=== PATIENT | female | born 1995 | race Caucasian/White ===

== ENCOUNTER 2016-07-16 07:35 | Emergency (ER) | payer MEDICAID ==
[~2016-07-16] VITALS: Ht 167.6 cm; Wt 59.0 kg
[2016-07-16 07:35] VITALS: BP 101/53
[~2016-07-16 07:35] MED LIST: ACYCLOVIR400 MG PO; CIPROFLOXACIN500 M2 ORAL; IBUPROFEN600 MG ORAL; NKM; PHENAZOPYRIDIN100 MG ORAL; PREDNISONE20 MG PO; TYLENOL EXTRA500 MG ORAL
[2016-07-16 07:51] VITALS: BP 92/58
[2016-07-16 08:11] LABS: BASOPHILS % (AUTO) 1.2 % (0.0-2.0); EOSINOPHILS % (AUTO) 2.6 % (0.0-3.0); LYMPHOCYTES % (AUTO) 25.4 % (20.0-45.0); MEAN CORPUSCULAR HEMOGLOBIN 29.7 PG (27.0-31.0); MEAN CORPUSCULAR HGB CONC 33.2 G/DL (32.0-36.0); MEAN CORPUSCULAR VOLUME 90 FL (80-99); MEAN PLATELET VOLUME 6.6 FL (6.5-10.1); NEUTROPHILS % (AUTO) 59.8 % (45.0-75.0); PLATELET COUNT 218 K/UL (150-450); RED BLOOD COUNT 4.32 M/UL (4.20-5.40); RED CELL DISTRIBUTION WIDTH 11.9 % (11.6-14.8); WHITE BLOOD COUNT 3.8 K/UL (4.8-10.8)
[2016-07-16 08:26] LABS: ALANINE AMINOTRANSFERASE 16 U/L (3-33); ALBUMIN/GLOBULIN RATIO 1.6 (1.0-2.7); ANION GAP 15 (5-15); ASPARTATE AMINO TRANSFERASE 15 U/L (5-40); CALCIUM 8.6 mg/dL (8.6-10.2); CARBON DIOXIDE 25 mEQ/L (20-30); CHLORIDE 100 mEQ/L (98-107); CREATININE 0.6 mg/dL (0.5-0.9); GLOMERULAR FILTRATION RATE > 60 mL/min (>60); HEMOLYSIS 3; POTASSIUM 3.8 mEQ/L (3.4-4.9); SODIUM 140 mEQ/L (135-145); TOTAL PROTEIN 6.5 g/dL (6.6-8.7)
[2016-07-16 08:27] LABS: TROPONIN I < 0.30 ng/mL (<=0.30)
[2016-07-16 08:36] LABS: CKMB < 1.5 ng/mL (< 3.8)
[2016-07-16 08:37] LABS: APPEARANCE,URINE SLIGHTLY CLOUDY; KETONES,URINE NEGATIVE (NEGATIVE); LEUKOCYTE ESTERASE ,URINE 1+ (NEGATIVE); NITRITE,URINE NEGATIVE (NEGATIVE); PH,URINE 6.5 (4.5-8.0); PROTEIN,URINE 2+ (NEGATIVE); UROBILINOGEN,URINE NORMAL MG/DL (0.0-1.0)
[2016-07-16 09:21] LABS: RBC,URINE 0-2 /HPF (0 - 2)
[2016-07-16 09:22] LABS: BACTERIA,URINE FEW /HPF; SQUAMOUS EPITHELIAL CELL,UR MODERATE /LPF (NONE/OCC)
--- NOTE | 2016-07-16 09:43 | Emergency Room Report ---
History of Present Illness General Chief Complaint: Syncope Source: Patient Present Illness HPI This patient presents with syncope. The patient states that she had gotten up to go to the restroom and suddenly became lightheaded, she states she saw white and then she was on the floor. She states she was able to crawl to get help and thinks that she may have fainted again. She denies recent illness. She denies cough or congestion. She has had similar episodes in the past. She states at that time she was found to be anemic. She denies neck pain or stiffness. She denies headache. She denies chest pain or abdominal pain. She has no other complaints. Allergies: Coded Allergies: No Known Allergies (Unverified , 02/15/12) Patient History Past Medical History: see triage record, other - anemia Social History: Denies: alcohol use, drug use, smoking Last Menstrual Period: last month Reviewed Nursing Documentation: PMH: Agreed, PSxH: Agreed Nursing Documentation-PMH Past Medical History: No History, Except For Hx Cardiac Problems: Yes - anemia Hx Hypertension: No Hx Pacemaker: No Hx Asthma: No Hx COPD: No Hx Diabetes: No Hx Cancer: No Hx Gastrointestinal Problems: No Hx Dialysis: No Hx Neurological Problems: No Hx Cerebrovascular Accident: No Hx Seizures: No Review of Systems All Other Systems: negative except mentioned in HPI Physical Exam Vital Signs Date Time Temp Pulse Resp B/P Pulse Ox O2 Delivery O2 Flow Rate FiO2 07/16/16 07:15 98.6 60 16 90/50 100 Room Air Sp02 EP Interpretation: reviewed, normal General Appearance: no apparent distress, alert, GCS 15, non-toxic Head: normocephalic, atraumatic Eyes: bilateral eye PERRL, bilateral eye normal inspection ENT: hearing grossly normal, normal pharynx, no angioedema, normal voice Neck: full range of motion, supple/symm/no masses Respiratory: chest non-tender, lungs clear, normal breath sounds, speaking full sentences Cardiovascular #1: regular rate, rhythm, no edema Gastrointestinal: normal bowel sounds, non tender, soft, non-distended, no guarding, no rebound Rectal: deferred Musculoskeletal: back normal, gait/station normal, normal range of motion, non- tender Neurologic: alert, oriented x3, responsive, motor strength/tone normal, sensory intact, speech normal Psychiatric: judgement/insight normal, memory normal, mood/affect normal, no suicidal/homicidal ideation Skin: normal color, no rash, warm/dry, well hydrated Medical Decision Making Diagnostic Impression: Primary Impression: Syncope Additional Impression: UTI (urinary tract infection) ER Course I suspect the syncope that the patient is presenting with is a nonemergent in etiology. Regarding the history, the patient has no history of structural heart disease or coronary artery disease, no family history of sudden , has no shortness of breath, and the syncope is not exertional. On physical exam , the patient is not hypotensive, has no findings of CHF, and no significant cardiac murmur suggestive of valvular heart disease or cardiac outflow obstruction. The patient reports no history of seizure or head trauma. EKG showed no evidence of concerning findings of QT prolongation, Brugada syndrome or significant ST changes suggestive of acute ischemia, dysrhythmias or significant conduction abnormalities. On laboratory evaluation, blood sugar was normal and the patient is not anemic. The patient was counseled that, though unlikely, the possibility of an emergent cause of syncope may be present and that the patient should return immediately if symptoms persist or worsen. The patient does have a blood pressure that runs low. She is a very thin young female in this is likely baseline for her. She is also slightly bradycardic with a heart rate in the 60s which is also likely baseline for her. She was educated to remain hydrated. I do not feel that the blood pressure is pathologic this patient and so I did not pursue this further. The patient urinalysis is contaminated, however, I will give the patient of course of Macrobid. I believe the patient is stable for discharge to followup with her PMD for further workup. Labs Test 07/16/16 07:55 White Blood Count 3.8 K/UL (4.8-10.8) Red Blood Count 4.32 M/UL (4.20-5.40) Hemoglobin 12.9 G/DL (12.0-16.0) Hematocrit 38.7 % (37.0-47.0) Mean Corpuscular Volume 90 FL (80-99) Mean Corpuscular Hemoglobin 29.7 PG (27.0-31.0) Mean Corpuscular Hemoglobin Concent 33.2 G/DL (32.0-36.0) Red Cell Distribution Width 11.9 % (11.6-14.8) Platelet Count 218 K/UL (150-450) Mean Platelet Volume 6.6 FL (6.5-10.1) Neutrophils (%) (Auto) 59.8 % (45.0-75.0) Lymphocytes (%) (Auto) 25.4 % (20.0-45.0) Monocytes (%) (Auto) 11.0 % (1.0-10.0) Eosinophils (%) (Auto) 2.6 % (0.0-3.0) Basophils (%) (Auto) 1.2 % (0.0-2.0) Urine Color Pale yellow Urine Appearance Slightly cloudy Urine pH 6.5 (4.5-8.0) Urine Specific [place] 1.010 (1.005-1.035) Urine Protein 2+ (NEGATIVE) Urine Glucose (UA) Negative (NEGATIVE) Urine Ketones Negative (NEGATIVE) Urine Occult Blood Negative (NEGATIVE) Urine Nitrite Negative (NEGATIVE) Urine Bilirubin Negative (NEGATIVE) Urine Urobilinogen Normal MG/DL (0.0-1.0) Urine Leukocyte Esterase 1+ (NEGATIVE) Urine RBC 0-2 /HPF (0 - 2) Urine WBC 5-10 /HPF (0 - 2) Urine Squamous Epithelial Cells Moderate /LPF (NONE/OCC) Urine Bacteria Few /HPF (NONE) Urine HCG, Qualitative Negative Sodium Level 140 mEQ/L (135-145) Potassium Level 3.8 mEQ/L (3.4-4.9) Chloride Level 100 mEQ/L (98-107) Carbon Dioxide Level 25 mEQ/L (20-30) Anion Gap 15 (5-15) Blood Urea Nitrogen 6 mg/dL (7-23) Creatinine 0.6 mg/dL (0.5-0.9) Estimat Glomerular Filtration Rate > 60 mL/min (>60) Glucose Level 102 mg/dL (74-106) Calcium Level 8.6 mg/dL (8.6-10.2) Total Bilirubin 0.6 mg/dL (0.0-1.2) Aspartate Amino Transf (AST/SGOT) 15 U/L (5-40) Alanine Aminotransferase (ALT/SGPT) 16 U/L (3-33) Alkaline Phosphatase 51 U/L (35-104) Total Creatine Kinase 42 U/L (26-140) Creatine Kinase MB < 1.5 ng/mL (< 3.8) Creatine Kinase MB Relative Index Troponin I < 0.30 ng/mL (<=0.30) Total Protein 6.5 g/dL (6.6-8.7) Albumin 4.0 g/dL (3.5-5.2) Globulin 2.5 g/dL Albumin/Globulin Ratio 1.6 (1.0-2.7) EKG Diagnostic Results Rate: normal Rhythm: NSR ST Segments: no acute changes Rhythm Strip Diag. Results EP Interpretation: yes Rate: 60's Rhythm: NSR, no PVC's, no ectopy Chest X-Ray Diagnostic Results EP Interpretation: Yes Findings: no consolidation, no effusion, no pneumothorax, no acute cardiopulmonary disease Number of Views: 1 Last Vital Signs Date Time Temp Pulse Resp B/P Pulse Ox O2 Delivery O2 Flow Rate FiO2 07/16/16 07:51 62 16 92/58 99 Room Air 07/16/16 07:35 97.3 Disposition: HOME, SELF-CARE Condition: Improved Referrals: [facility],REFERRING (PCP) Patient Instructions: Syncope CALIN VALLEJO D.O. Jul 16, 2016 09:43
[2016-07-16] MEDS ORDERED: NITROFURANTOIN100 M2 ORAL (09:56)
[2016-07-16 10:34] VITALS: BP 85/45
--- NOTE | 2016-07-18 14:05 | Cardiology Report ---
APPROVED REPORT EKG Measurement Heart [id number] Normal sinus rhythm Normal ECG
--- NOTE | 2016-08-08 08:43 | Diagnostic Imaging Report ---
Indication: Chest pain Technique: One view of the chest Comparison: none Findings: Lungs and pleural spaces are clear. Heart size is normal. Impression: No acute process
== END 2016-07-16 10:37 | disposition home or self-care (01) ==
LOC: EDBD 07:35 → EMR 07:54
DX: R55 Syncope and collapse (principal); N39.0 Urinary tract infection, site not specified
CPT/HCPCS: 36415; 71010; 80053; 81003; 81025; 82550; 82553; 84484; 85025; 93005; 96360; 96361

== ENCOUNTER 2019-05-09 10:35 | Emergency (ER) | payer MEDICAID ==
[~2019-05-09] VITALS: Ht 167.6 cm; Wt 72.6 kg
[~2019-05-09 10:35] MED LIST changes: +NITROFURANTOIN100 M2 ORAL
[2019-05-09 10:47] VITALS: BP 115/70
--- NOTE | 2019-05-09 10:47 | NUR ---
ED Nurse Note: PT FROM HOME CAME IN DUE TO VAGINAL SPOTTING WHICH STARTED AROUND THANKSGIVING BUT HAS BEEN IN LARGE AMOUNT WITH CLOTS IN THE LAST 2 DAYS. ALSO C/O LOWER BACK PAIN. DENIES DIZZINESS. LMP WAS 04/2019. AAO X4, AMBULATORY WITH NON LABORED BREATHING. FAMILY MEMBER TA THE BED SIDE.
--- NOTE | 2019-05-09 11:07 | NUR ---
ED Nurse Note: U/S tech contacted.
--- NOTE | 2019-05-09 11:18 | NUR ---
ED Nurse Note: COLLECTE DBLOOD THEN SENT. PT UNABLE TO PROVIDE URINE SAMPLE AT THIS TIME.
--- NOTE | 2019-05-09 11:45 | NUR ---
ED Nurse Note: US STAFF AT THE BED SIDE.
[2019-05-09 11:52] LABS: BASOPHILS % (AUTO) 1.1 % (0.0-2.0); EOSINOPHILS % (AUTO) 2.7 % (0.0-3.0); HEMATOCRIT 38.4 % (37.0-47.0); HEMOGLOBIN 12.8 G/DL (12.0-16.0); LYMPHOCYTES % (AUTO) 24.8 % (20.0-45.0); MEAN CORPUSCULAR VOLUME 87 FL (80-99); NEUTROPHILS % (AUTO) 66.4 % (45.0-75.0); PLATELET COUNT 268 K/UL (150-450); RED BLOOD COUNT 4.41 M/UL (4.20-5.40); RED CELL DISTRIBUTION WIDTH 11.4 % (11.6-14.8); WHITE BLOOD COUNT 7.1 K/UL (4.8-10.8)
[2019-05-09 12:02] LABS: INR 0.9 (0.9-1.1)
[2019-05-09 12:04] LABS: ALANINE AMINOTRANSFERASE 24 U/L (12-78); ALBUMIN 3.9 G/DL (3.4-5.0); ALBUMIN/GLOBULIN RATIO 1.1 (1.0-2.7); ALKALINE PHOSPHATASE 63 U/L (46-116); ANION GAP 9 mmol/L (5-15); ASPARTATE AMINO TRANSFERASE 13 U/L (15-37); BILIRUBIN,TOTAL 0.3 MG/DL (0.2-1.0); BLOOD UREA NITROGEN 8 mg/dL (7-18); CALCIUM 8.6 MG/DL (8.5-10.1); CARBON DIOXIDE 28 MMOL/L (21-32); CHLORIDE 106 MMOL/L (98-107); CREATININE 0.6 MG/DL (0.55-1.30); POTASSIUM 3.8 MMOL/L (3.5-5.1); SODIUM 143 MMOL/L (136-145)
[2019-05-09 13:06] VITALS: BP 127/80
[2019-05-09 13:06] LABS: APPEARANCE,URINE SLIGHTLY CLOUDY; BILIRUBIN, URINE NEGATIVE (NEGATIVE); COLOR,URINE PALE YELLOW; GLUCOSE, URINE (UA) NEGATIVE (NEGATIVE); KETONES,URINE NEGATIVE (NEGATIVE); LEUKOCYTE ESTERASE ,URINE NEGATIVE (NEGATIVE); NITRITE,URINE NEGATIVE (NEGATIVE); PH,URINE 6 (4.5-8.0); PROTEIN,URINE NEGATIVE (NEGATIVE); UROBILINOGEN,URINE NORMAL MG/DL (0.0-1.0)
--- NOTE | 2019-05-09 13:06 | NUR ---
ER DISCHARGE NOTE: Patient is cleared to be discharged per ERMD, pt is aox4, on room air, with stable vital signs. pt was given dc and prescription instructions, pt was able to verbalize understanding, pt id band and iv site removed without complications. pt is able to ambulate with steady gait. pt took all belongings.
--- NOTE | 2019-05-09 13:47 | Diagnostic Imaging Report ---
EXAM: US Pelvis Transabdominal, Complete CLINICAL HISTORY: BLD TECHNIQUE: Real-time complete transabdominal pelvic ultrasound with image documentation. COMPARISON: None FINDINGS: Uterus: Retroverted uterus measures 7.1 x 4.3 x 5.0 cm. Normal appearance. Endometrium measures 8.0 mm. Right ovary: Measures 3.9 x 3.3 x 4.1 cm. Right ovarian cyst measuring 3.6 x 2.9 x 2.8 cm. Normal color Doppler flow to the right ovary. Left ovary: Measures 3.1 x 1.1 by 1.6 cm. Normal appearance with normal color Doppler flow. Other: No free fluid. No adnexal mass. IMPRESSION: 1. Right ovarian cyst measuring up to 3.6 cm. No ovarian torsion. 2. No acute abnormality.
--- NOTE | 2019-05-09 14:17 | Emergency Room Report ---
History of Present Illness General Chief Complaint: Female Urogenital Problems Source: Patient Present Illness HPI 23-year-old female presents ED for evaluation. Complaining of cramping pain for the last 5 days. Also notes bleeding with large clots. Pain is dull, 5 out of 10, nonradiating. Denies dizziness or weakness. Does not believe she is . States that she believes this was her period but has lasted longer than usual and heavier than usual. No other aggravating relieving factors. Denies any other associated symptoms Allergies: Coded Allergies: No Known Allergies (Unverified , 02/15/12) Patient History Past Medical History: none Past Surgical History: none Pertinent Family History: none Social History: Denies: smoking, alcohol use, drug use Last Menstrual Period: 04/04/2019 Now: No Immunizations: UTD Reviewed Nursing Documentation: PMH: Agreed; PSxH: Agreed Nursing Documentation-PMH Past Medical History: No History, Except For Hx Cardiac Problems: Yes - anemia Hx Hypertension: No Hx Pacemaker: No Hx Asthma: No Hx COPD: No Hx Diabetes: No Hx Cancer: No Hx Gastrointestinal Problems: No Hx Dialysis: No Hx Neurological Problems: No Hx Cerebrovascular Accident: No Hx Seizures: No Review of Systems All Other Systems: negative except mentioned in HPI Physical Exam Vital Signs Date Time Temp Pulse Resp B/P (MAP) Pulse Ox O2 Delivery O2 Flow Rate FiO2 05/09/19 10:37 98.2 93 16 104/68 (80) 93 Room Air Sp02 EP Interpretation: reviewed, normal General Appearance: no apparent distress, alert, GCS 15, non-toxic Head: normocephalic, atraumatic Eyes: bilateral eye normal inspection, bilateral eye PERRL ENT: hearing grossly normal, normal pharynx, no angioedema, normal voice Neck: full range of motion, supple/symm/no masses Respiratory: chest non-tender, lungs clear, normal breath sounds, speaking full sentences Cardiovascular #1: regular rate, rhythm, no edema Cardiovascular #2: 2+ carotid (R), 2+ carotid (L), 2+ radial (R), 2+ radial (L) , 2+ dorsalis pedis (R), 2+ dorsalis pedis (L) Gastrointestinal: normal bowel sounds, non tender, soft, non-distended, no guarding, no rebound Rectal: deferred Genitourinary: normal inspection, no CVA tenderness Musculoskeletal: back normal, normal range of motion, gait/station normal, non- tender Neurologic: alert, motor strength/tone normal, oriented x3, sensory intact, responsive, speech normal Psychiatric: judgement/insight normal, memory normal, mood/affect normal, no suicidal/homicidal ideation Reflexes: 3+ bicep (R), 3+ bicep (L), 3+ tricep (R), 3+ tricep (L), 3+ knee (R) , 3+ knee (L) Lymphatic: no adenopathy Medical Decision Making Diagnostic Impression: Primary Impression: Vaginal bleeding ER Course Hospital Course 23-year-old F presents to ED with vaginal bleeding, abd pain Differential diagnosis includes- ovarian cyst, torsion, ectopic , DUB Clinical course Patient placed on stretcher. After initial history and physical I ordered labs , IV fluids, and Pelvic US Labs - no leukocytosis, Hb/Hct stable, electrolytes ok, LFTs normal, pregnative negative pelvic US - ovarian cyst noted, no acute pathology noted to explain vaginal bleeding I discussed findings with the patient. Consideration for dysfunctional uterine bleeding. No evidence of fibroids. Hemoglobin/hematocrit stable. Not . Will discharge to home. Safe for discharge for close outpatient follow-up. Does not have an [employer] I will provide referrals I feel this is a highly complex case requiring extensive working including EKG/ Rhythm strip, Xray/CT/US, Blood/urine lab work, repeat exams while in ED, and administration of strong opiates/narcotics for pain control, admission to hospital or close patient follow up. Diagnosis - vaginal bleeding Stable and discharged to home. Followup with PMD. Return to ED if symptoms recur or worsen Labs Test 05/09/19 11:07 05/09/19 13:00 White Blood Count 7.1 K/UL (4.8-10.8) Red Blood Count 4.41 M/UL (4.20-5.40) Hemoglobin 12.8 G/DL (12.0-16.0) Hematocrit 38.4 % (37.0-47.0) Mean Corpuscular Volume 87 FL (80-99) Mean Corpuscular Hemoglobin 29.2 PG (27.0-31.0) Mean Corpuscular Hemoglobin Concent 33.5 G/DL (32.0-36.0) Red Cell Distribution Width 11.4 % (11.6-14.8) Platelet Count 268 K/UL (150-450) Mean Platelet Volume 5.9 FL (6.5-10.1) Neutrophils (%) (Auto) 66.4 % (45.0-75.0) Lymphocytes (%) (Auto) 24.8 % (20.0-45.0) Monocytes (%) (Auto) 5.0 % (1.0-10.0) Eosinophils (%) (Auto) 2.7 % (0.0-3.0) Basophils (%) (Auto) 1.1 % (0.0-2.0) Prothrombin Time 9.9 SEC (9.30-11.50) Prothromb Time International Ratio 0.9 (0.9-1.1) Activated Partial Thromboplast Time 27 SEC (23-33) Sodium Level 143 MMOL/L (136-145) Potassium Level 3.8 MMOL/L (3.5-5.1) Chloride Level 106 MMOL/L (98-107) Carbon Dioxide Level 28 MMOL/L (21-32) Anion Gap 9 mmol/L (5-15) Blood Urea Nitrogen 8 mg/dL (7-18) Creatinine 0.6 MG/DL (0.55-1.30) Estimat Glomerular Filtration Rate > 60 mL/min (>60) Glucose Level 98 MG/DL (74-106) Calcium Level 8.6 MG/DL (8.5-10.1) Total Bilirubin 0.3 MG/DL (0.2-1.0) Aspartate Amino Transf (AST/SGOT) 13 U/L (15-37) Alanine Aminotransferase (ALT/SGPT) 24 U/L (12-78) Alkaline Phosphatase 63 U/L (46-116) Total Protein 7.6 G/DL (6.4-8.2) Albumin 3.9 G/DL (3.4-5.0) Globulin 3.7 g/dL Albumin/Globulin Ratio 1.1 (1.0-2.7) Lipase 100 U/L (73-393) Human Chorionic Gonadotropin, Quant < 1 mIU/mL (1-6) Urine Color Pale yellow Urine Appearance Slightly cloudy Urine pH 6 (4.5-8.0) Urine Specific [place] 1.010 (1.005-1.035) Urine Protein Negative (NEGATIVE) Urine Glucose (UA) Negative (NEGATIVE) Urine Ketones Negative (NEGATIVE) Urine Blood 5+ (NEGATIVE) Urine Nitrite Negative (NEGATIVE) Urine Bilirubin Negative (NEGATIVE) Urine Urobilinogen Normal MG/DL (0.0-1.0) Urine Leukocyte Esterase Negative (NEGATIVE) Urine RBC Tntc /HPF (0 - 2) Urine WBC 0-2 /HPF (0 - 2) Urine Squamous Epithelial Cells Occasional /LPF Urine Bacteria Occasional /HPF (NONE) Urine HCG, Qualitative Negative (NEGATIVE) CT/MRI/US Diagnostic Results CT/MRI/US Diagnostic Results : Imaging Test Ordered: Pelvic US Impression FINDINGS: Uterus: Retroverted uterus measures 7.1 x 4.3 x 5.0 cm. Normal appearance. Endometrium measures 8.0 mm. Right ovary: Measures 3.9 x 3.3 x 4.1 cm. Right ovarian cyst measuring 3.6 x 2.9 x 2.8 cm. Normal color Doppler flow to the right ovary. Left ovary: Measures 3.1 x 1.1 by 1.6 cm. Normal appearance with normal color Doppler flow. Other: No free fluid. No adnexal mass. IMPRESSION: 1. Right ovarian cyst measuring up to 3.6 cm. No ovarian torsion. 2. No acute abnormality. Last Vital Signs Date Time Temp Pulse Resp B/P (MAP) Pulse Ox O2 Delivery O2 Flow Rate FiO2 05/09/19 13:06 97.8 84 16 127/80 99 Room Air Status: improved Disposition: HOME, SELF-CARE Condition: Stable Referrals: NON PHYSICIAN (PCP) [facility] Patient Instructions: Abnormal Uterine Bleeding, [id number] Jarrett Burgos MD May 09, 2019 14:17
== END 2019-05-09 13:06 | disposition home or self-care (01) ==
LOC: EMR 11:06
DX: N93.9 Abnormal uterine and vaginal bleeding, unspecified (principal); R10.9 Unspecified abdominal pain; N83.201 Unspecified ovarian cyst, right side
CPT/HCPCS: 36415; 76830; 76856; 80053; 81003; 81025; 83690; 84702; 85025; 85610; 85730; 86850; 86900; 86901; 96360; Z7502; 99284